=== PATIENT | female | born 1930 | race Caucasian/White ===

== ENCOUNTER 2018-04-23 22:39 | Inpatient (IN) ==
[2018-04-24 02:28] LABS: Basophils % 0.3 % (0.0-0.8); Eosinophils % 0.3 % (0.00-10.9); Hematocrit 41.1 VOL% (35.7-47.0); Immature Granulocytes % 0.5 %; Immature Granulocytes Absolute 0.06 #; Lymphocytes # 1.1 10*3/uL (1.4-4.0); Lymphocytes % 8.9 % (21.3-54.2); Mean Corpuscular HGB Conc 31.6 GM/DL (32-36); Mean Corpuscular Hemoglobin 31 PG (27-34); Mean Corpuscular Volume 97.6 FL (87-102); Mean Platelet Volume 8.5 FL (9.6-12.0); Monocytes # 1.2 10*3/uL (0.11-0.8); Monocytes % 9.2 % (1.7-12.7); Neutrophils # 10.2 10*3/uL (1.4-7.4); Neutrophils % 80.8 % (38.7-73.9); Platelet Count 422 T/CUMM (130-400); Red Blood Count 4.21 MC/CUMM (3.8-5.5); Red Cell Distribution Width 13.9 % (9.3-17.3); White Blood Count 12.6 T/CUMM (4-12)
[2018-04-24] MEDS ORDERED: ONDANSETRON 4 MG/2 ML VIAL IV PRN (02:42)
[2018-04-24] MEDS ORDERED: BISACODYL 5 MG TABLET PO PRN (02:42)
[2018-04-24 02:48] LABS: Albumin 2.6 G/DL (3.4-5.0); Bilirubin,Total 0.6 MG/DL (0.2-1.0); Calcium 8.5 MG/DL (8.5-10.1); Osmolality,Calculated 277.1 MOS/KG (273-304); Potassium 3.8 MMOL/L (3.5-5.1); Total Protein 7.9 G/DL (6.4-8.3)
[2018-04-24] MEDS: PANTOPRAZOLE 40 MG TABLET PO SCH (12:00)
[2018-04-24] MEDS ORDERED: TUBERCULIN SKIN TEST 0.1 ML SYRINGE INTRADERM ONE (16:18)
[2018-04-24] MEDS: ACETAMINOPHEN 325 MG TABLET PO PRN (20:20)
[2018-04-25 05:52] LABS: Basophils # 0.1 10*3/uL (0.0-0.2); Basophils % 0.4 % (0.0-0.8); Eosinophils # 0.1 10*3/uL (0.0-0.87); Eosinophils % 1.2 % (0.00-10.9); Hematocrit 37.2 VOL% (35.7-47.0); Hemoglobin 11.9 GM/DL (12.0-16.0); Immature Granulocytes % 0.7 %; Immature Granulocytes Absolute 0.08 #; Lymphocytes % 8.9 % (21.3-54.2); Mean Corpuscular Hemoglobin 31 PG (27-34); Mean Corpuscular Volume 97.1 FL (87-102); Mean Platelet Volume 8.9 FL (9.6-12.0); Monocytes # 1.3 10*3/uL (0.11-0.8); Monocytes % 11.7 % (1.7-12.7); Neutrophils # 8.6 10*3/uL (1.4-7.4); Neutrophils % 77.1 % (38.7-73.9); Platelet Count 436 T/CUMM (130-400); Red Blood Count 3.83 MC/CUMM (3.8-5.5); Red Cell Distribution Width 13.8 % (9.3-17.3); White Blood Count 11.2 T/CUMM (4-12)
[2018-04-25] MEDS: PANTOPRAZOLE 40 MG TABLET PO SCH (09:38)
[2018-04-25] MEDS: ACETAMINOPHEN 325 MG TABLET PO PRN (18:45)
[2018-04-26 06:06] LABS: Calcium 8.4 MG/DL (8.5-10.1); Osmolality,Calculated 277.7 MOS/KG (273-304); Potassium 3.6 MMOL/L (3.5-5.1)
[2018-04-26] MEDS: ACETAMINOPHEN 325 MG TABLET PO PRN ×2 (07:19→19:39)
[2018-04-26] MEDS: PANTOPRAZOLE 40 MG TABLET PO SCH (09:09)
[2018-04-26] MEDS ORDERED: DOCUSATE SODIUM 250 MG PO SCH (21:00)
[2018-04-26] MEDS ORDERED: VIT C PO SCH (21:00)
[2018-04-26] MEDS ORDERED: GLUC SU PO SCH (21:00)
[2018-04-26] MEDS ORDERED: [UNRECOGNIZED DRUG - OTHER] PO SCH (21:00)
[2018-04-26] MEDS ORDERED: CHONDRO SU A PO SCH (21:00)
[2018-04-26] MEDS: METOPROLOL TARTRATE 25 MG TABLET PO SCH (21:22)
[2018-04-26] MEDS: ATORVASTATIN 10 MG TABLET PO SCH (21:22)
[2018-04-26] MEDS: DIGOXIN 0.125 MG TABLET PO SCH (21:22)
[2018-04-26] MEDS: GABAPENTIN 400 MG CAPSULE PO SCH (21:22)
[2018-04-27] MEDS ORDERED: SODIUM PHOSPHATE ENEMA 133 ML BOTTLE RECTAL ONE (06:00)
[2018-04-27] MEDS: LEVOTHYROXINE 150 MCG TABLET PO SCH (06:31)
[2018-04-27] MEDS: SPIRONOLACTONE 50 MG TABLET PO SCH ×2 (08:50→15:05)
[2018-04-27] MEDS: PANTOPRAZOLE 40 MG TABLET PO SCH (08:51)
[2018-04-27] MEDS: GABAPENTIN 400 MG CAPSULE PO SCH ×2 (08:51→20:07)
[2018-04-27] MEDS: buPROPion XL 150 MG TABLET PO SCH ×2 (08:51→15:04)
[2018-04-27] MEDS ORDERED: FISH OIL PO SCH (09:00)
[2018-04-27] MEDS ORDERED: [UNRECOGNIZED DRUG - OTHER] PO SCH (09:00)
[2018-04-27] MEDS ORDERED: BIOTIN 5000 MCG PO SCH (09:00)
[2018-04-27] MEDS ORDERED: [UNRECOGNIZED DRUG - OTHER] PO SCH (09:00)
[2018-04-27] MEDS ORDERED: LUTEIN PO SCH (09:00)
[2018-04-27] MEDS ORDERED: LYCOPEN PO SCH (09:00)
[2018-04-27] MEDS ORDERED: LIDOCAINE 2% 5 ML VIAL ONE (09:00)
[2018-04-27] MEDS ORDERED: PROPOFOL 200 MG/20 ML VIAL IV ONE (09:00)
[2018-04-27] MEDS ORDERED: OMEGA PO SCH (09:00)
[2018-04-27] MEDS ORDERED: EPA PO SCH (09:00)
[2018-04-27] MEDS ORDERED: DHA PO SCH (09:00)
[2018-04-27] MEDS ORDERED: MULTIVIT MIN PO SCH (09:00)
[2018-04-27] MEDS: ACETAMINOPHEN 325 MG TABLET PO PRN (14:00)
[2018-04-27] MEDS: DILTIAZEM 30 MG TABLET PO SCH (20:07)
[2018-04-27] MEDS: ATORVASTATIN 10 MG TABLET PO SCH (20:07)
[2018-04-27] MEDS: DIGOXIN 0.125 MG TABLET PO SCH (20:07)
[2018-04-27] MEDS: METOPROLOL TARTRATE 25 MG TABLET PO SCH (20:09)
[2018-04-28] MEDS: LEVOTHYROXINE 150 MCG TABLET PO SCH (07:11)
[2018-04-28] MEDS: SPIRONOLACTONE 50 MG TABLET PO SCH (09:22)
[2018-04-28] MEDS: buPROPion XL 150 MG TABLET PO SCH (09:22)
[2018-04-28] MEDS: FUROSEMIDE 40 MG TABLET PO SCH (09:22)
[2018-04-28] MEDS: GABAPENTIN 400 MG CAPSULE PO SCH ×2 (09:23→20:54)
[2018-04-28] MEDS: DILTIAZEM 30 MG TABLET PO SCH ×2 (09:23→20:54)
[2018-04-28] MEDS: PANTOPRAZOLE 40 MG TABLET PO SCH (09:23)
[2018-04-28] MEDS: METOPROLOL TARTRATE 25 MG TABLET PO SCH (20:52)
[2018-04-28] MEDS: ACETAMINOPHEN 325 MG TABLET PO PRN (20:52)
[2018-04-28] MEDS: ATORVASTATIN 10 MG TABLET PO SCH (20:54)
[2018-04-28] MEDS: DIGOXIN 0.125 MG TABLET PO SCH (20:54)
[2018-04-29] MEDS: LEVOTHYROXINE 150 MCG TABLET PO SCH (06:00)
[2018-04-29] MEDS: buPROPion XL 150 MG TABLET PO SCH (10:23)
[2018-04-29] MEDS: DILTIAZEM 30 MG TABLET PO SCH (10:23)
[2018-04-29] MEDS: FUROSEMIDE 40 MG TABLET PO SCH (10:23)
[2018-04-29] MEDS: GABAPENTIN 400 MG CAPSULE PO SCH (10:25)
[2018-04-29] MEDS: PANTOPRAZOLE 40 MG TABLET PO SCH (10:26)
[2018-04-29] MEDS: SPIRONOLACTONE 50 MG TABLET PO SCH (10:30)
[2018-04-29 16:05] VITALS: BP 99/53
== END 2018-04-29 15:30 | DRG 375 ==
LOC: EDUNIT# → N.ED 22:39 → N.EDINP 22:39 → SUATTDRO 04-24 02:42 → N.3E 04-24 03:57 → SUATTDRO 04-24 11:51
PROVIDERS: ADMIT Internal Medicine; ATTEND Internal Medicine